=== PATIENT | female | born 1995 | race African-American/Black ===

== ENCOUNTER 2020-08-05 10:23 | Inpatient (IN) ==
[2020-08-05] MEDS ORDERED: DEXAMETHASONE SOD INJ 10 MG/ML VIAL IV ONE (11:07)
[2020-08-05] MEDS ORDERED: ALBUTEROL 0.083% NEBU SOLN 3 ML VIAL NEB STA (11:07)
[2020-08-05] MEDS ORDERED: ACETAMINOPHEN 500 MG TAB PO STA (11:07)
[2020-08-05] MEDS ORDERED: ALBUTEROL HFA 8 GM INHALER INH ONE (11:09)
--- NOTE | 2020-08-05 11:13 | Emergency Department Note ---
Impression & Plan COVID-19, Cough, Shortness of breath, Asthma, Chest pain ED Provider Note NAME: RAFFI LANG AGE: 25 SEX: F : 1995 ARRIVES VIA: Walk-In INFORMANT: Patient ED PROVIDER(S): Norm Hartley DO CHIEF COMPLAINT: Shortness of breath fever HPI: Patient notes that all of her symptoms started around 22 July. She had a cough and a fever. This dissipated for short time and now has reoccurred. She tested positive this past Monday for coronavirus. She admits last night she has had left-sided chest pain which is constant. Is worse on palpation. Her sh ortness of breath is significant worsened over the past 2 days. She is referred in by [facility] as a respiratory rate over there was in the 40s and her pulse ox was 90%. Patient notes any kind of exertion or talking she becomes significantly tachypneic. She recently stopped her steroids as they ran out. Denies any belly pain nausea vomiting or diarrhea. She did lose her sense of taste and smell. ROS: See above HPI for pertinent positives & negatives. A total of 10 systems reviewed and were otherwise negative. PAST MEDICAL HISTORY:See Below PAST SURGICAL HISTORY:See Below FAMILY HISTORY:See Below SOCIAL HISTORY:See Below HOME MEDICATIONS:See Below ALLERGIES:See Below VITALS:See Below PHYSICAL EXAMINATION: GENERAL: Sitting up in bed, alert, morbidly obese, significantly dyspneic with conversation, EYE EXAM: normal conjunctiva. OROPHARYNX: no exudate, no erythema, lips, buccal mucosa, and tongue normal and mucous membranes are moist NECK: supple, no nuchal rigidity, no adenopathy, non-tender LUNGS: Tachypneic and poor air movement. Normal chest wall mechanics HEART: no murmurs, S1 normal and S2 normal ABDOMEN: abdomen soft, non-tender, normo-active bowel sounds, no masses, no rebound or guarding. BACK: Back is symmetrical on inspection and there is no deformity, no midline tenderness, no CVA tenderness. SKIN: no rashes and no bruising UPPER EXTREMITIES: upper extremities are grossly normal. LOWER EXTREMITIES: No pitting edema. Calves are equal bilateral NEURO EXAM: Normal sensorium, cranial nerves II-XII grossly intact, normal speech, no gross weakness of arms, no gross weakness of legs. MEDICAL DECISION MAKING: Patient is a 25-year-old female who presents the ER for worsening shortness of breath. Started about 2 weeks ago with cough and fever. She tested positive for coronavirus. Symptoms have been worsening over the past several days. Shortness of breath significantly worsened yesterday.Review established blood work is obtained. Labs show no significant leukocytosis or anemia. INR was unremarkable. VBG with a pH of 7.42. BMP was unremarkable. Troponin was negative with symptoms have been present for greater than 8 hours. Her chest pain is completely reproducible on exam. She had a recent negative D-dimer on the . EKG was not changed from her previous. She was placed on high flow as upon arrival respiratory rate was in the 40s. She was given multiple albuterol treatments. She was given IV Decadron. Chest x-ray showed no clear infiltrate. Discussed with the hospitalist. Dr. Vázquez requested adding a D-dimer. Patient was admitted to hospital service with an add on D-dimer per their request. Will defer the results and additional testing to them. Triage Nursing notes reviewed. Prior medical records reviewed Vital Signs: reviewed and remarkable for febrile, tachycardic, tachypneic Differential diagnosis: Differential diagnoses includes but is not limited to pneumonia, bronchitis, COPD/Asthma exacerbation, pneumothorax, pulmonary embolism, congestive heart failure, acute coronary syndrome ER treatment provided: See below Diagnostics interpreted by me: ECG: Sinus rhythm rate of 113 Normal axis No PVCs Nonspecific ST wave changes in the lateral leads. Cardiac Monitoring: An order was placed for continuous cardiac monitoring. The monitor shows a rate of 115 with sinus rhythm. Laboratory studies: As stated above and show below. Imaging studies: Portable AP upright 1 view of the chest without any focal infiltrate although difficult to interpret due to body habitus Consultation(s): Case was discussed with Dr. Vaibhav Vázquez who agreed with evaluation and requested the addition of a D-dimer. ED COURSE: Procedures: none Critical Care: I have personally spent 40 minutes of critical care time in the direct management of this patient. This includes bedside care, interpretation of diagnostic studies, and testing, discussion with consultants, patient, and family members, and other required patient management activities. This 40 minutes is in excess of all separately billable procedures. Past Med/Surg History Social History Smoking Status: Never smoker Hx Alcohol Use: No Hx Substance Use: No Preferred Language: Icelandic Communication Ability: Effective Telegraph Office Telephone Clerk Required: No Beliefs That Will Affect Care: None Current Living Situation: Other Current Living Situation Comment: Pt lives with roommate Feels Safe at Home: Yes Assistive Devices: Glasses Allergies Allergies Allergy/AdvReac Type Severity Reaction Status Date / Time No Known Allergies Allergy Unverified 08/05/20 13:17 Home Meds Home Medications Medication Instructions Recorded Confirmed albuterol sulfate [Ventolin HFA] 2 puff INHALATION Q4H PRN 08/05/20 08/05/20 [id number] 30 ml PO Q6H PRN 08/05/20 08/05/20 [Vicks DayQuil] Results & Data (ED) Vital Signs Vital Signs - 24 hr 08/05/20 10:35 08/05/20 10:41 08/05/20 10:51 Temperature 39.6 C H Temperature Source Oral Pulse Rate 120 H 114 H 112 H Pulse Rate [Apical] Pulse Rate from SpO2 Sensor 111 H 112 H Pulse Rhythm Regular Respiratory Rate 29 H 36 H 47 H Respiratory Effort / Characteristics Short of Breath Blood Pressure 125/91 125/91 Blood Pressure Mean 102 100 Pulse Oximetry 93 93 94 Oxygen Delivery Method Room Air Oxygen Flow Rate Fraction of Inspired Oxygen Sepsis Recent Fever Within 48 Hours Yes Sepsis New/Unexplained Change in Mental Status N/A Sepsis Action Taken by Nursing Physician Notified 08/05/20 11:00 08/05/20 11:01 08/05/20 11:30 Temperature Temperature Source Pulse Rate 117 H 115 H 116 H Pulse Rate [Apical] Pulse Rate from SpO2 Sensor 114 H 112 H 114 H Pulse Rhythm Respiratory Rate 39 H 46 H 30 H Respiratory Effort / Characteristics Blood Pressure 119/86 113/79 Blood Pressure Mean 95 89 Pulse Oximetry 93 93 96 Oxygen Delivery Method Oxygen Flow Rate Fraction of Inspired Oxygen Sepsis Recent Fever Within 48 Hours Sepsis New/Unexplained Change in Mental Status Sepsis Action Taken by Nursing 08/05/20 11:31 08/05/20 11:32 08/05/20 11:53 Temperature Temperature Source Pulse Rate 115 H Pulse Rate [Apical] 115 H Pulse Rate from SpO2 Sensor 86 Pulse Rhythm Respiratory Rate 38 H 37 H Respiratory Effort / Characteristics Spontaneous Labored Blood Pressure Blood Pressure Mean Pulse Oximetry 96 97 Oxygen Delivery Method Room Air High Flow Nasal Cannula Oxygen Flow Rate 30 Fraction of Inspired Oxygen 21 Sepsis Recent Fever Within 48 Hours Sepsis New/Unexplained Change in Mental Status Sepsis Action Taken by Nursing 08/05/20 12:00 08/05/20 12:01 08/05/20 12:12 Temperature Temperature Source Pulse Rate 120 H 122 H Pulse Rate [Apical] Pulse Rate from SpO2 Sensor 120 H 54 L Pulse Rhythm Respiratory Rate 10 L 34 H Respiratory Effort / Characteristics Short of Breath Blood Pressure 131/97 Blood Pressure Mean 117 Pulse Oximetry 96 Oxygen Delivery Method Oxygen Flow Rate Fraction of Inspired Oxygen Sepsis Recent Fever Within 48 Hours Sepsis New/Unexplained Change in Mental Status Sepsis Action Taken by Nursing 08/05/20 12:30 08/05/20 13:00 08/05/20 13:01 Temperature Temperature Source Pulse Rate 117 H 123 H 126 H Pulse Rate [Apical] Pulse Rate from SpO2 Sensor 117 H 124 H Pulse Rhythm Respiratory Rate 29 H 20 Respiratory Effort / Characteristics Blood Pressure 132/82 119/83 Blood Pressure Mean 91 88 Pulse Oximetry 95 92 Oxygen Delivery Method Oxygen Flow Rate Fraction of Inspired Oxygen Sepsis Recent Fever Within 48 Hours Sepsis New/Unexplained Change in Mental Status Sepsis Action Taken by Nursing 08/05/20 13:30 08/05/20 13:31 08/05/20 13:39 Temperature Temperature Source Pulse Rate 115 H 115 H Pulse Rate [Apical] 118 H Pulse Rate from SpO2 Sensor 117 H 115 H Pulse Rhythm Respiratory Rate 35 H 36 H Respiratory Effort / Characteristics Spontaneous Labored Blood Pressure 112/87 Blood Pressure Mean 90 Pulse Oximetry 92 93 93 Oxygen Delivery Method High Flow Nasal Cannula Oxygen Flow Rate 30 Fraction of Inspired Oxygen 21 Sepsis Recent Fever Within 48 Hours Sepsis New/Unexplained Change in Mental Status Sepsis Action Taken by Nursing Laboratory Data Result diagrams: 08/05/20 11:29 08/05/20 11:29 Lab Results 08/05/20 08/05/20 08/05/20 Range/Units 11:29 11:29 11:29 WBC 8.06 (4.8-10.8) K/uL RBC 4.97 (4.2-5.4) M/uL Hgb 13.9 (12.0-16.0) g/dL Hct 41.3 (37-47) % MCV 83.1 (80-100) fL MCH 28.0 (25-34) pg MCHC 33.7 (32-36) g/dL RDW Std Deviation 40.0 (36.4-46.3) fL RDW Coeff of Altagracia 13.3 (11.5-14.5) % Plt Count 236 (130-400) K/uL MPV 9.5 (7.4-10.4) fL Immature Gran % (Auto) 2.1 % Neut % (Auto) 69.0 % Lymph % (Auto) 13.6 % Kleberg % (Auto) 14.3 % Eos % (Auto) 0.9 % Baso % (Auto) 0.1 % Neut # (Auto) 5.56 (1.4-6.5) K/uL Lymph # (Auto) 1.10 L (1.2-3.4) K/uL Kleberg # (Auto) 1.15 H (0.11-0.59) K/uL Eos # (Auto) 0.07 (0-0.5) K/uL Baso # (Auto) 0.01 (0-0.2) K/uL Immature Gran # (Auto) 0.17 H (0.00-0.02) K/uL PT 11.9 (9.0-12.0) Seconds INR 1.1 (0.9-1.1) APTT 30.8 (21.0-31.0) Seconds PTT Ratio 1.1 D-Dimer (0-500) ug/L FEU VBG pH (7.36-7.41) VBG pCO2 (38-50) mmHg VBG pO2 mmHg VBG HCO3 mmol/L VBG O2 Saturation % VBG Base Excess mEq/L Sodium 136 (136-145) mmol/L Potassium 3.8 (3.5-5.1) mmol/L Chloride 103 (98-107) mmol/L Carbon Dioxide 28 (21-32) mmol/L Anion Gap 5.0 (3-11) BUN 7 (7-18) mg/dl Creatinine 0.93 (0.6-1.2) mg/dl Est Cr Clr Drug Dosing 133.8 ml/min Est GFR ( Amer) 100.4 Est GFR (Non-Af Amer) 86.6 BUN/Creatinine Ratio 7.6 L (10-20) Glucose 97 (70-99) mg/dl Calcium 8.8 (8.5-10.1) mg/dl Total Bilirubin 2.9 H (0.2-1) mg/dl AST 43 H (15-37) U/L ALT 41 (12-78) U/L Alkaline Phosphatase 77 (45-117) U/L Troponin I < 0.015 (0-0.045) ng/ml Total Protein 7.4 (6.4-8.2) gm/dl Albumin 2.3 L (3.4-5.0) gm/dl Globulin 5.1 H (2.5-4.0) gm/dl Albumin/Globulin Ratio 0.5 L (0.9-2) Lipase 133 (73-393) U/L Specimen Hemolysis 08/05/20 08/05/20 Range/Units 11:29 11:29 WBC (4.8-10.8) K/uL RBC (4.2-5.4) M/uL Hgb (12.0-16.0) g/dL Hct (37-47) % MCV (80-100) fL MCH (25-34) pg MCHC (32-36) g/dL RDW Std Deviation (36.4-46.3) fL RDW Coeff of Altagracia (11.5-14.5) % Plt Count (130-400) K/uL MPV (7.4-10.4) fL Immature Gran % (Auto) % Neut % (Auto) % Lymph % (Auto) % Kleberg % (Auto) % Eos % (Auto) % Baso % (Auto) % Neut # (Auto) (1.4-6.5) K/uL Lymph # (Auto) (1.2-3.4) K/uL Kleberg # (Auto) (0.11-0.59) K/uL Eos # (Auto) (0-0.5) K/uL Baso # (Auto) (0-0.2) K/uL Immature Gran # (Auto) (0.00-0.02) K/uL PT (9.0-12.0) Seconds INR (0.9-1.1) APTT (21.0-31.0) Seconds PTT Ratio D-Dimer 3310 H* (0-500) ug/L FEU VBG pH 7.42 H (7.36-7.41) VBG pCO2 46 (38-50) mmHg VBG pO2 21 mmHg VBG HCO3 29 mmol/L VBG O2 Saturation < 60.0 % VBG Base Excess 4.2 mEq/L Sodium (136-145) mmol/L Potassium (3.5-5.1) mmol/L Chloride (98-107) mmol/L Carbon Dioxide (21-32) mmol/L Anion Gap (3-11) BUN (7-18) mg/dl Creatinine (0.6-1.2) mg/dl Est Cr Clr Drug Dosing ml/min Est GFR ( Amer) Est GFR (Non-Af Amer) BUN/Creatinine Ratio (10-20) Glucose (70-99) mg/dl Calcium (8.5-10.1) mg/dl Total Bilirubin (0.2-1) mg/dl AST (15-37) U/L ALT (12-78) U/L Alkaline Phosphatase (45-117) U/L Troponin I (0-0.045) ng/ml Total Protein (6.4-8.2) gm/dl Albumin (3.4-5.0) gm/dl Globulin (2.5-4.0) gm/dl Albumin/Globulin Ratio (0.9-2) Lipase (73-393) U/L Specimen Hemolysis Administered Medications Discontinued Medications Acetaminophen (Acetaminophen 500 Mg Tab) 1,000 mg PO NOW STA Stop: 08/05/20 11:08 Last Admin: 08/05/20 11:33 Dose: 1,000 mg Documented by: [id number] Albuterol (Albuterol 0.083% Nebu Soln 3 Ml Vial) 10 mg NEB NOW STA Stop: 08/05/20 11:08 Last Admin: 08/05/20 11:29 Dose: Not Given Documented by: [id number] Albuterol (Albuterol Hfa 8 Gm Inhaler) 6 puffs INH NOW ONE Stop: 08/05/20 11:10 Last Admin: 08/05/20 11:33 Dose: 6 puffs Documented by: [id number] Albuterol (Albut/Ipratrop 3mg/0.5mg Neb 3 Ml Vial) 3 ml NEB Q4R JON Stop: 09/04/20 15:14 Last Admin: 08/05/20 15:51 Dose: Not Given Documented by: [id number] Dexamethasone (Dexamethasone Sod Inj 10 Mg/Ml Vial) 6 mg IV NOW ONE Stop: 08/05/20 11:08 Last Admin: 08/05/20 11:33 Dose: 6 mg Documented by: [id number] Discharge Plan Visit Data Chief Complaint: Chest Pain Stated Complaint: CHEST PAIN SOB ED Provider: Norm Hartley Discharge Problem: COVID-19, Cough, Shortness of breath, Asthma, Chest pain Patient Disposition: Admitted As Inpatient Discharge Instructions Interventions: ED Discharge Assessment Last Done: 08/05/20 14:27 Discharge Problem: Asthma Qualifiers: Asthma severity: unspecified severity Asthma persistence: unspecified Asthma complication type: unspecified Qualified Code(s): J45.909 - Unspecified asthma, uncomplicated
--- NOTE | 2020-08-05 11:45 | XRay Report ---
XR chest 1V portable HISTORY: 25 years-old Female Chest Pain acute shortness of breath with weakness and asthma.COVID Pos itive. COMPARISON: Chest radiograph 07/31/2019 TECHNIQUE: Portable AP view of the chest FINDINGS: Mild hypoinflation. Bibasilar opacities are noted with mild blunting of the costophrenic angles. Card iac silhouette is upper limits of normal in size. No pneumothorax or overt pulmonary edema. Bones jimmie ear grossly intact. IMPRESSION: Hypoinflation with bibasilar densities suggestive of probable atelectasis. Pneumonitis co nsidered less likely. ACT 112: Negative or not required by law. The above report was generated using voice recognition software. It may contain grammatical, syntax o r spelling errors. Electronically signed by: Wilber Mandujano M.D. 08/05/2020 11:44 AM
[2020-08-05 11:49] LABS: Base Excess VBG 4.2 mEq/L; HCO3 VBG 29 mmol/L; Oxygen Saturation VBG < 60.0 %; PCO2 VBG 46 mmHg (38-50); PO2 VBG 21 mmHg; pH VBG 7.42 (7.36-7.41)
[2020-08-05 11:57] LABS: INR 1.1 (0.9-1.1); Partial Thromboplastin Ratio 1.1; Partial Thromboplastin Time 30.8 Seconds (21.0-31.0); Prothrombin Time 11.9 Seconds (9.0-12.0)
[2020-08-05 12:05] LABS: Alanine Aminotransferase 41 U/L (12-78); Albumin Level 2.3 gm/dl (3.4-5.0); Aspartate Aminotransferase 43 U/L (15-37); BUN Creatinine Ratio 7.6 (10-20); Blood Urea Nitrogen 7 mg/dl (7-18); Calcium 8.8 mg/dl (8.5-10.1); Carbon Dioxide 28 mmol/L (21-32); Chloride 103 mmol/L (98-107); Creatinine Clr Calc Pharmacy 133.8 ml/min; Est GFR (African American) 100.4; Est GFR (Non-African American) 86.6; Glucose 97 mg/dl (70-99); Lipase 133 U/L (73-393); Potassium 3.8 mmol/L (3.5-5.1); Sodium 136 mmol/L (136-145)
[2020-08-05 12:11] LABS: Albumin Globulin Ratio 0.5 (0.9-2); Alkaline Phosphatase 77 U/L (45-117); Basophils # (auto) 0.01 K/uL (0-0.2); Basophils % (auto) 0.1 %; Bilirubin,Total 2.9 mg/dl (0.2-1); Eosinophils # (auto) 0.07 K/uL (0-0.5); Eosinophils % (auto) 0.9 %; Globulin 5.1 gm/dl (2.5-4.0); Hematocrit (blood only) 41.3 % (37-47); Hemoglobin 13.9 g/dL (12.0-16.0); Immature Granulocytes # (auto) 0.17 K/uL (0.00-0.02); Immature Granulocytes % (auto) 2.1 %; Lymphocytes % (auto) 13.6 %; Mean Corpuscular Hgb Conc 33.7 g/dL (32-36); Mean Corpuscular Volume 83.1 fL (80-100); Mean Platelet Volume 9.5 fL (7.4-10.4); Monocytes # (auto) 1.15 K/uL (0.11-0.59); Monocytes % (auto) 14.3 %; Neutrophils # (auto) 5.56 K/uL (1.4-6.5); Platelet Count 236 K/uL (130-400); RDW Coefficient of Variation 13.3 % (11.5-14.5); Red Blood Count 4.97 M/uL (4.2-5.4); Total Protein 7.4 gm/dl (6.4-8.2); Troponin I < 0.015 ng/ml (0-0.045); White Blood Count 8.06 K/uL (4.8-10.8)
--- NOTE | 2020-08-05 13:29 | Electrocardiogram Report ---
Test Reason : Blood Pressure : / mmHG Vent. Rate : 113 BPM Atrial Rate : 113 BPM P-R Int : 132 ms QRS Dur : 076 ms QT Int : 334 ms P-R-T Axes : 054 019 035 degrees QTc Int : 458 ms Sinus tachycardia Left atrial enlargement Nondiagnostic inferior Q waves Diffuse Minor Nonspecific T wave abnormality Abnormal ECG When compared with ECG of 31-JUL-2020 16:32, No significant change was found Confirmed by Bal Batres ([id number]) on 08/05/2020 1:29:10 PM Referred By: Confirmed By:Bal Batres
[2020-08-05 13:36] LABS: D Dimer 3310 ug/L FEU (0-500)
--- NOTE | 2020-08-05 13:51 | History & Physical Report ---
Date of Service August 05, 2020 Assessment & Plan (1) COVID-19: Patient has had symptoms since July 22 diagnosed July 28 is likely out of the window for remdesivir she will be given continue dexamethasone and zinc. I did discuss with pulmonary medicine and they are in agreement with administering convalescent plasma. They have also recommended Bipap at night to help air trapping. Her elevation of her D-dimer does raise some concern cytokine storm she is in the appropriate timeframe for that. The emergency department patient was put on high flow oxygen Given her inflammatory state and obesity she also is at risk for pulmonary embolism we will therapeutically anticoagulate her and try to coordinate a CTA scan at an appropriate time given her Covid status as the scanner will need to be appropriately sterilized after her scan was completed (2) Asthma: Guarding her asthma she will be supplemented with oxygen she will be given dexamethasone intravenously and DuoNeb's History of Present Illness Primary Care Provider: [facility] 25 yo obese asthmatic patient notes that all of her symptoms started around 22 July. She had a cough and a fever. This dissipated for short time and now has reoccurred. She tested positive 07/28/20 for coronavirus. She admits last night she has had left-sided chest pain which is constant. Is worse on palpation. Her shortness of breath is significant worsened over the past 2 days. She is referred in by [facility] as a respiratory rate over there was in the 40s and her pulse ox was 90%. Patient notes any kind of exertion or talking she becomes significantly tachypneic. She recently stopped her steroids as they ran out. Denies any belly pain nausea vomiting or diarrhea. She did lose her sense of taste and smell. markedly elevated d dimer non specific cxr changes due to poor technique secondary to body habitus Allergies Allergy/AdvReac Type Severity Reaction Status Date / Time No Known Allergies Allergy Unverified 08/05/20 13:17 Home Medications Home Medications Medication Instructions Recorded Confirmed Type albuterol sulfate [Ventolin HFA] 2 puff INHALATION Q4H PRN 08/05/20 08/05/20 History vunemkqlukd-SU-tqpcjnyjdigjh 30 ml PO Q6H PRN 08/05/20 08/05/20 History [Jonathan DayZenia] Past Med/Surg History Social History Smoking Status: Never smoker Feels Safe at Home: Yes Review of Systems Review of Systems: Moderate to severe distress although comfortable with high flow no headache, blurry or double vision no speech or swallowing issues claiming her lack of taste and smell is returned no chest pain, pressure or palpitations Likely dyspneic with any type of exertion no abdominal pain, nausea or vomiting, diarrhea present but lessening no dysuria, hematuria or frequency no focal joint pain or swelling no back pain, CVA tenderness or radicular pain no bruising, bleeding or rashes no focal signs of weakness or numbness or altered sensation no complaints of anxiety or depression. Physical Exam Physical Exam: The patient appeared in moderate distress. Vital signs as documented. Head exam is normocephalic atraumatic no scleral icterus Neck is without JVD, thyromegaly, or carotid bruits. Lungs overall poor air movement, no overt loss or wheeze Cardiac exam, Rhythm is regular.. No murmurs, rubs or gallops. Abdominal exam reveals normal bowel sounds, soft non tender, no masses Extremities are nonedematous and both pedal pulses are present Neurologic exam is alert and oriented, no focal loss of strength or sensation Skin is without bruises or rashes Psychologically is without concerns for anxiety or depression. Results & Data Results & Data ([facility]) Vital Signs (Past 12 Hours) Vital Signs Temp Pulse Pulse Resp BP Pulse Ox 08/05/20 13:39 118 H 36 H 93 08/05/20 12:30 117 H 29 H 132/82 95 08/05/20 12:01 122 H 34 H 08/05/20 12:00 120 H 10 L 131/97 96 08/05/20 11:53 115 H 37 H 97 08/05/20 11:32 96 08/05/20 11:31 115 H 38 H 08/05/20 11:30 116 H 30 H 113/79 96 08/05/20 11:01 115 H 46 H 93 08/05/20 11:00 117 H 39 H 119/86 93 08/05/20 10:51 112 H 47 H 94 08/05/20 10:41 114 H 36 H 125/91 93 08/05/20 10:35 103.3 F H 120 H 29 H 125/91 93 Code Status & VTE Plan VTE Prophylaxis Plan VTE Prophylaxis will be ordered: Yes PG Care Time/CCT Total # of Minutes Spent Total Time Spent with Patient: Total time spent is greater than 50% in coordination of care (as documented) at patient's floor/unit and/or counseling patient: Coding Level of Care Code 73936 Initial Inpt Care Lvl 3 Diagnoses COVID-19 U07.1 Asthma J45.909 Asthma complication type: unspecified Asthma persistence: unspecified Asthma severity: mild (1) Asthma Asthma complication type: unspecified Asthma persistence: unspecified Asthma severity: mild Qualified Code(s): J45.909 - Unspecified asthma, uncomplicated
[2020-08-05] MEDS ORDERED: ACETAMINOPHEN 325 MG TAB PO PRN (15:07)
[2020-08-05] MEDS ORDERED: ENOXAPARIN 1 MG/KG SQ SCH (15:07)
[2020-08-05] MEDS ORDERED: ONDANSETRON INJ 2 MG/ML 2 ML VIAL IV PRN (15:07)
[2020-08-05] MEDS ORDERED: ALBUT/IPRATROP 3MG/0.5MG NEB 3 ML VIAL NEB SCH (15:15)
[2020-08-05] MEDS ORDERED: INFLUENZA ADMINISTRATION CHARGE ONE (15:30)
[2020-08-05] MEDS ORDERED: INFLUENZA VIRUS QUAD VACCINE 0.5 ML SYR IM ONE (15:30)
--- NOTE | 2020-08-05 16:03 | Pharmacy Report ---
Enoxaparin Dosing Consult - Date of Service August 05, 2020 - Pharmacy Dosing Scope Pharmacy is consulted to review the use of enoxaparin in a special risk patient population possibly prone to accumulate drug: obesity and SARS-COV-2 positive with elevated D-dimer & to initiate/continue/recommend change in the setting of ordered THERAPEUTIC enoxaparin sub-q dosing therapy, order appropriate labs and adjust drug/dose/frequency. - Subjective The patient is a 25 year old F admitted on 08/05/20 13:46 for COVID +, ACUTE RESP FAILURE HYPOXIA. Patient is to receive THERAPEUTIC enoxaparin sub-q for COVID-19 positive status and elevated d-dimer. Pertinent PMH: COVID-19 positive, asthma - Objective Laboratory Results:: Last 24 Hours 08/05/20 08/05/20 08/05/20 11:29 11:29 11:29 Hgb 13.9 Hct 41.3 Plt Count 236 APTT 30.8 PTT Ratio 1.1 BUN 7 Creatinine 0.93 Last 72 Hours 08/05/20 08/05/20 08/05/20 11:29 11:29 11:29 Plt Count 236 INR 1.1 D-Dimer Total Bilirubin 2.9 H AST 43 H ALT 41 08/05/20 11:29 Plt Count INR D-Dimer 3310 H* Total Bilirubin AST ALT - Assessment & Plan Regarding THERAPEUTIC Enoxaparin: Initiate enoxaparin 150 mg sub-q every 12 hours based on review of the following special population risk factors for drug accumulation: obese Covid positive patient with elevated d-dimer. Discussed with hospitalist and Dr. Bradley. Labs: * Will order Peak Anti-factor Xa level to be drawn 4 hours after 5th dose to better assess drug elimination & review potential for drug accumulation. Goal Peak Anti-factor Xa level = 0.5-1.0 IU/mL. * Ongoing Labs (P&T Approved): CBC q 3 days x 2 weeks, serum creat q 3 days We will continue to monitor this patient and make adjustments as needed. Thank you.
[2020-08-05] MEDS ORDERED: OPTIRAY 320 125ml IV ONE (16:39)
--- NOTE | 2020-08-05 16:55 | CT Scan Report ---
CT angio chest PE protocol CT DOSE: 411.55 mGycm HISTORY: 25 years-old Female with PE. Acute shortness of breath TECHNIQUE: Multiple CTA images of the chest were obtained after the intravenous administration of 119 ml Optiray 320. Coronal and sagittal MIPS were obtained from the axial data set and were submitted for review. All measurements were obtained according to NASCET criteria. A dose lowering technique w as utilized adhering to the principles of ALARA. COMPARISON: Chest radiograph of same day FINDINGS: CTA: Heart is upper limits of normal in size. No pericardial effusion. No thoracic aortic aneurysm or diss ection. Suboptimal evaluation of the pulmonary artery secondary to motion and suboptimal contrast silvio us timing. Numerous filling defects are noted within the lobar and segmental branches of the lower lo bes compatible with pulmonary emboli. CT CHEST: Unremarkable thyroid. No adenopathy. Trace pleural effusions. No pneumothorax. Patchy multisegmental alveolar opacities of the bilateral lungs with dense consolidation groundglass opacity of the lung ba ses. No acute process of the imaged upper abdomen. Bones appear intact. IMPRESSION: 1. Limited exam as above. Pulmonary emboli of the bilateral lower lobes are noted within the lobar an d segmental branches. 2. Multifocal bibasilar predominate groundglass and consolidative opacities are suggestive of multifo magdalena pneumonia likely with superimposed atelectasis/developing pulmonary infarcts. Follow-up recommend ed. 3. Trace pleural effusions. ACT 112: Negative or not required by law. The above report was generated using voice recognition software. It may contain grammatical, syntax o r spelling errors. Electronically signed by: Wilber Mandujano M.D. 08/05/2020 4:53 PM
[2020-08-05 17:16] LABS: Pregnancy Test, Urine Negative (Negative)
[2020-08-05] MEDS: ENOXAPARIN 150 MG/ML SYR SQ SCH (17:25)
[2020-08-05] MEDS: ALBUTEROL HFA 8 GM INHALER INH SCH ×2 (20:15→23:21)
[2020-08-05] MEDS: IPRATROPIUM BROMIDE HFA INHALER INH SCH (20:15)
[2020-08-06] MEDS: IPRATROPIUM BROMIDE HFA INHALER INH SCH ×6 (00:08→19:32)
[2020-08-06] MEDS: ALBUTEROL HFA 8 GM INHALER INH SCH ×5 (03:35→19:30)
[2020-08-06] MEDS: ENOXAPARIN 150 MG/ML SYR SQ SCH ×2 (06:39→20:01)
[2020-08-06 07:31] LABS: Hematocrit (blood only) 38.5 % (37-47); Hemoglobin 13.1 g/dL (12.0-16.0); Mean Corpuscular Hemoglobin 28.2 pg (25-34); Mean Corpuscular Volume 82.8 fL (80-100); Mean Platelet Volume 9.5 fL (7.4-10.4); Platelet Count 245 K/uL (130-400); RDW Coefficient of Variation 13.3 % (11.5-14.5); RDW Standard Deviation 40.3 fL (36.4-46.3); Red Blood Count 4.65 M/uL (4.2-5.4); White Blood Count 10.72 K/uL (4.8-10.8)
[2020-08-06 08:03] LABS: Creatinine Clr Calc Pharmacy 149.1 ml/min; Est GFR (African American) 116.9; Est GFR (Non-African American) 100.9
[2020-08-06] MEDS: ZINC SULFATE 220 MG CAPSULE PO SCH (08:23)
[2020-08-06] MEDS ORDERED: DEXAMETHASONE SOD INJ 10 MG/ML VIAL IV SCH (09:00)
[2020-08-06] MEDS ORDERED: DEXAMETHASONE SOD PHOSPHATE 6 MG in SYRINGE 0 ML IV SCH (09:00)
[2020-08-06 10:55] LABS: Basophils # (auto) 0.01 K/uL (0-0.2); Basophils % (auto) 0.1 %; Eosinophils # (auto) 0.02 K/uL (0-0.5); Eosinophils % (auto) 0.2 %; Immature Granulocytes # (auto) 0.19 K/uL (0.00-0.02); Immature Granulocytes % (auto) 1.8 %; Lymphocytes # (auto) 1.07 K/uL (1.2-3.4); Monocytes # (auto) 1.43 K/uL (0.11-0.59); Monocytes % (auto) 13.3 %; Neutrophils % (auto) 74.6 %
[2020-08-06 10:58] LABS: Albumin Level 2.3 gm/dl (3.4-5.0); BUN Creatinine Ratio 7.6 (10-20); Calcium 8.6 mg/dl (8.5-10.1); Creatinine Clr Calc Pharmacy 147.3 ml/min; Est GFR (African American) 115.2; Est GFR (Non-African American) 99.4
[2020-08-06 11:03] LABS: Albumin Globulin Ratio 0.5 (0.9-2); Bilirubin,Total 1.3 mg/dl (0.2-1); C Reactive Protein 16.8 mg/dl (0-0.29); Ferritin 288.4 ng/ml (8-388); Globulin 5.1 gm/dl (2.5-4.0); Total Protein 7.4 gm/dl (6.4-8.2)
[2020-08-06 11:18] LABS: D Dimer 4130 ug/L FEU (0-500)
--- NOTE | 2020-08-06 17:48 | Hospitalist Progress Note ---
Date of Service August 06, 2020 Assessment & Plan (1) Pulmonary emboli: Presented after having Covid-19 for approximately 2 weeks with worsening shortness of breath, fever and was found to have bilateral pulmonary emboli with developing pulmonary infarcts She remains hemodynamically stable Echocardiogram cannot be performed in this facility on a Covid patient unless deemed of very urgent nature. Recommend echocardiogram as an outpatient in 1 to 2 weeks Due to her morbid obesity, anticoagulation clinic was consulted for management Decision was made to proceed with full dose therapeutic Lovenox 150 mg SQ every 12 hours Checking Anti-Xa level 4 hours after the fifth dose to ensure therapeutic dosing Plan to continue Lovenox for approximately 2 weeks until she is able to start on Coumadin and attend the anticoagulation clinic regularly (when she is no longer considered contagious with her Covid and can come out of quarantine) Patient is in agreement with this plan Recommend anticoagulation for 6 months Of note, she reports her mother has a history of multiple blood clots Recommend hypercoagulable work-up given this family history despite the fact that she has Covid-19 and morbid obesity which certainly could have provoked her PEs. -Ordered all hypercoagulable work-up except could not order Antithrombin III and lupus PTT screen as she is on anticoagulant with enoxaparin -Follow [id number] elevated today at 4000 (2) COVID-19: Patient has had symptoms since July 22 and was diagnosed July 28 -She is out of the window for receiving remdesivir -She did receive 1 unit of convalescent plasma -Continue dexamethasone but increased to 6 mg IV twice daily given large body habitus and wheezing with asthma on examination Pulmonary has recommended Bipap at night to help air trapping-this was ordered but unclear why not used last night. -Markers of inflammation are significantly elevated with ESR greater than 90, CRP 16, D-dimer in the 4000s -Continue to follow CBC, CMP, D-dimer, LDH, ferritin, CRP, ESR -Also continues on zinc sulfate (3) Acute respiratory failure with hypoxia: Secondary to pulmonary emboli with pulmonary infarcts and wheezing with asthma Continue supplemental O2 to keep pulse ox greater than 92% Continue albuterol and ipratropium HFA's but change albuterol to 2 puffs every 6 hours (4) Asthma: Continue bronchodilators and IV steroids as above With some wheezing here today (5) Morbid obesity: BMI significantly elevated at 58.9 Needs weight loss counseling and encouragement (6) Fever: Fevers could be from Covid-19, but more likely from acute PEs with pulmonary infarct Procalcitonin is negative at 0.12 Tylenol as needed for fever Blood cultures drawn today and are pending Follow procalcitonin in the morning as it is a high risk for secondary bacterial pneumonia given Covid-19 as well as pulmonary infarcts and asthma No antibiotics for now (7) DVT prophylaxis: Therapeutic dosing of Lovenox SQ Disposition-continued stay on telemetry Expected least 2 nights further stay Admission and Anticipated Discharge Date Admission Date: August 05, 2020 Subjective Patient reports still not feeling that well. Still spiking fevers. She has a dry cough. Denies chest pain but still feels a little short of breath. Denies nausea or vomiting and is eating well. No further diarrhea but did have that earlier in the course of her Covid We discussed anticoagulation strategy with Lovenox bridge to Coumadin I discussed her care with the stallion keeper regarding her fevers and the possibility of pulmonary infarct and suspected pneumonia-he recommended checking procalcitonin which was done and was negative. I also discussed her care with anticoagulation specialist regarding Lovenox x2 weeks until she is off quarantine and can come to the anticoagulation clinic for Coumadin management Review of Systems Review of Systems: All systems reviewed & are unremarkable except as noted in HPI & below Denies headache or runny nose, no sore throat. She does still have some loss of taste and smell. No trouble urinating Physical Exam Constitutional: WD/WN, vitals as above + morbidly obese Eyes: PERRL, conjunctivae normal, anicteric sclerae ENMT: external ear and nose normal, oropharynx normal Neck: trachea midline, no thyromegaly Respiratory: normal respiratory effort and + cough Auscultation: + diminished lung sounds (At the bases) and + wheezes (A few scattered expiratory wheezes); no crackles Cardiovascular: RRR, no murmur, no edema Extremities: no calf tenderness and no pedal edema Chest (Breasts): Chest: normal inspection of chest Gastrointestinal (Abdomen): normal bowel sounds, soft, nontender, no hepatosplenomegaly Musculoskeletal: Extremities: extremities normal to inspection; no cyanosis and no clubbing Skin: no rashes, warm and dry Neurologic: moves all extremities and awake; no focal motor deficits Psychiatric: A+Ox3, euthymic affect Lymphatic: no lymphedema Results & Data Results & Data ([facility]) Vital Signs (Past 12 Hours) Vital Signs Temp Pulse Pulse Pulse Resp BP Pulse Ox 08/06/20 15:34 94 H 22 92 08/06/20 15:10 36.9 C 96 H 20 135/89 91 08/06/20 15:01 91 H 08/06/20 13:07 37.6 C H 135 H 154/83 H 08/06/20 11:34 37.6 C H 99 H 18 139/89 89 L 08/06/20 11:12 101 H 26 H 86 L 08/06/20 08:48 37.3 C 104 H 17 140/86 93 08/06/20 07:21 98 H 26 H 92 Laboratory Results 08/06/20 08/06/20 08/06/20 Range/Units 10:27 06:40 06:40 WBC (4.8-10.8) K/uL RBC (4.2-5.4) M/uL Hgb (12.0-16.0) g/dL Hct (37-47) % MCV (80-100) fL MCH (25-34) pg MCHC (32-36) g/dL RDW Std Deviation (36.4-46.3) fL RDW Coeff of Altagracia (11.5-14.5) % Plt Count (130-400) K/uL MPV (7.4-10.4) fL Immature Gran % (Auto) % Neut % (Auto) % Lymph % (Auto) % Rankin % (Auto) % Eos % (Auto) % Baso % (Auto) % Neut # (Auto) (1.4-6.5) K/uL Lymph # (Auto) (1.2-3.4) K/uL Rankin # (Auto) (0.11-0.59) K/uL Eos # (Auto) (0-0.5) K/uL Baso # (Auto) (0-0.2) K/uL Immature Gran # (Auto) (0.00-0.02) K/uL ESR > 90 H (0-21) mm/hr D-Dimer 4130 H* (0-500) ug/L FEU Sodium (136-145) mmol/L Potassium (3.5-5.1) mmol/L Chloride (98-107) mmol/L Carbon Dioxide (21-32) mmol/L Anion Gap (3-11) BUN (7-18) mg/dl Creatinine (0.6-1.2) mg/dl Est Cr Clr Drug Dosing ml/min Est GFR ( Amer) Est GFR (Non-Af Amer) BUN/Creatinine Ratio (10-20) Glucose (70-99) mg/dl Calcium (8.5-10.1) mg/dl Ferritin (8-388) ng/ml Total Bilirubin (0.2-1) mg/dl AST (15-37) U/L ALT (12-78) U/L Alkaline Phosphatase (45-117) U/L Lactate Dehydrogenase 483 H (84-246) U/L C-Reactive Protein (0-0.29) mg/dl Total Protein (6.4-8.2) gm/dl Albumin (3.4-5.0) gm/dl Globulin (2.5-4.0) gm/dl Albumin/Globulin Ratio (0.9-2) Procalcitonin (0-0.5) ng/ml 08/06/20 08/06/20 08/06/20 Range/Units 06:40 06:40 06:40 WBC (4.8-10.8) K/uL RBC (4.2-5.4) M/uL Hgb (12.0-16.0) g/dL Hct (37-47) % MCV (80-100) fL MCH (25-34) pg MCHC (32-36) g/dL RDW Std Deviation (36.4-46.3) fL RDW Coeff of Altagracia (11.5-14.5) % Plt Count (130-400) K/uL MPV (7.4-10.4) fL Immature Gran % (Auto) % Neut % (Auto) % Lymph % (Auto) % Rankin % (Auto) % Eos % (Auto) % Baso % (Auto) % Neut # (Auto) (1.4-6.5) K/uL Lymph # (Auto) (1.2-3.4) K/uL Rankin # (Auto) (0.11-0.59) K/uL Eos # (Auto) (0-0.5) K/uL Baso # (Auto) (0-0.2) K/uL Immature Gran # (Auto) (0.00-0.02) K/uL ESR (0-21) mm/hr D-Dimer (0-500) ug/L FEU Sodium 138 (136-145) mmol/L Potassium 4.0 (3.5-5.1) mmol/L Chloride 105 (98-107) mmol/L Carbon Dioxide 28 (21-32) mmol/L Anion Gap 5.0 (3-11) BUN 6 L (7-18) mg/dl Creatinine 0.83 0.82 (0.6-1.2) mg/dl Est Cr Clr Drug Dosing 147.3 149.1 ml/min Est GFR ( Amer) 115.2 116.9 Est GFR (Non-Af Amer) 99.4 100.9 BUN/Creatinine Ratio 7.6 L (10-20) Glucose 105 H (70-99) mg/dl Calcium 8.6 (8.5-10.1) mg/dl Ferritin 288.4 (8-388) ng/ml Total Bilirubin 1.3 H D (0.2-1) mg/dl AST 36 (15-37) U/L ALT 36 (12-78) U/L Alkaline Phosphatase 86 (45-117) U/L Lactate Dehydrogenase (84-246) U/L C-Reactive Protein 16.80 H (0-0.29) mg/dl Total Protein 7.4 (6.4-8.2) gm/dl Albumin 2.3 L (3.4-5.0) gm/dl Globulin 5.1 H (2.5-4.0) gm/dl Albumin/Globulin Ratio 0.5 L (0.9-2) Procalcitonin 0.12 (0-0.5) ng/ml 08/06/20 Range/Units 06:40 WBC 10.72 (4.8-10.8) K/uL RBC 4.65 (4.2-5.4) M/uL Hgb 13.1 (12.0-16.0) g/dL Hct 38.5 (37-47) % MCV 82.8 (80-100) fL MCH 28.2 (25-34) pg MCHC 34.0 (32-36) g/dL RDW Std Deviation 40.3 (36.4-46.3) fL RDW Coeff of Altagracia 13.3 (11.5-14.5) % Plt Count 245 (130-400) K/uL MPV 9.5 (7.4-10.4) fL Immature Gran % (Auto) 1.8 % Neut % (Auto) 74.6 % Lymph % (Auto) 10.0 % Rankin % (Auto) 13.3 % Eos % (Auto) 0.2 % Baso % (Auto) 0.1 % Neut # (Auto) 8.00 H (1.4-6.5) K/uL Lymph # (Auto) 1.07 L (1.2-3.4) K/uL Rankin # (Auto) 1.43 H (0.11-0.59) K/uL Eos # (Auto) 0.02 (0-0.5) K/uL Baso # (Auto) 0.01 (0-0.2) K/uL Immature Gran # (Auto) 0.19 H (0.00-0.02) K/uL ESR (0-21) mm/hr D-Dimer (0-500) ug/L FEU Sodium (136-145) mmol/L Potassium (3.5-5.1) mmol/L Chloride (98-107) mmol/L Carbon Dioxide (21-32) mmol/L Anion Gap (3-11) BUN (7-18) mg/dl Creatinine (0.6-1.2) mg/dl Est Cr Clr Drug Dosing ml/min Est GFR ( Amer) Est GFR (Non-Af Amer) BUN/Creatinine Ratio (10-20) Glucose (70-99) mg/dl Calcium (8.5-10.1) mg/dl Ferritin (8-388) ng/ml Total Bilirubin (0.2-1) mg/dl AST (15-37) U/L ALT (12-78) U/L Alkaline Phosphatase (45-117) U/L Lactate Dehydrogenase (84-246) U/L C-Reactive Protein (0-0.29) mg/dl Total Protein (6.4-8.2) gm/dl Albumin (3.4-5.0) gm/dl Globulin (2.5-4.0) gm/dl Albumin/Globulin Ratio (0.9-2) Procalcitonin (0-0.5) ng/ml PG Care Time/CCT Total # of Minutes Spent Total Time Spent with Patient: Total time spent is greater than 50% in coordination of care (as documented) at patient's floor/unit and/or counseling patient: Coding Level of Care Code 94698 Subseq Hosp Care Lvl 3 Diagnoses Pulmonary emboli I26.99 COVID-19 U07.1 Acute respiratory failure with hypoxia J96.01 Asthma J45.909 Asthma complication type: unspecified Asthma persistence: unspecified Asthma severity: unspecified severity Morbid obesity E66.01 Fever R50.9 DVT prophylaxis Z29.9 (1) Asthma Asthma complication type: unspecified Asthma persistence: unspecified Asthma severity: unspecified severity Qualified Code(s): J45.909 - Unspecified asthma, uncomplicated
[2020-08-07] MEDS: DEXAMETHASONE SOD PHOSPHATE 6 MG in SYRINGE 0 ML IV SCH ×3 (00:29→19:46)
[2020-08-07] MEDS: ALBUTEROL HFA 8 GM INHALER INH SCH ×6 (01:15→23:39)
[2020-08-07] MEDS: IPRATROPIUM BROMIDE HFA INHALER INH SCH ×6 (01:15→23:55)
[2020-08-07] MEDS: ENOXAPARIN 150 MG/ML SYR SQ SCH ×2 (06:04→19:44)
[2020-08-07 08:23] LABS: Hemoglobin 13.5 g/dL (12.0-16.0); Immature Granulocytes # (auto) 0.28 K/uL (0.00-0.02); Immature Granulocytes % (auto) 2.2 %; Lymphocytes # (auto) 1.14 K/uL (1.2-3.4); Lymphocytes % (auto) 8.9 %; Mean Corpuscular Hgb Conc 33.8 g/dL (32-36); Monocytes # (auto) 0.92 K/uL (0.11-0.59); Monocytes % (auto) 7.2 %; Neutrophils # (auto) 10.47 K/uL (1.4-6.5); Neutrophils % (auto) 81.7 %; Platelet Count 318 K/uL (130-400); RDW Coefficient of Variation 13.4 % (11.5-14.5); RDW Standard Deviation 40.4 fL (36.4-46.3); Red Blood Count 4.82 M/uL (4.2-5.4); White Blood Count 12.81 K/uL (4.8-10.8)
[2020-08-07] MEDS: ZINC SULFATE 220 MG CAPSULE PO SCH (08:51)
[2020-08-07 08:52] LABS: Albumin Level 2.3 gm/dl (3.4-5.0); BUN Creatinine Ratio 12.7 (10-20); Calcium 9.3 mg/dl (8.5-10.1); Creatinine Clr Calc Pharmacy 147.2 ml/min; Est GFR (African American) 115.2; Est GFR (Non-African American) 99.4; Potassium 3.9 mmol/L (3.5-5.1)
[2020-08-07 08:58] LABS: Albumin Globulin Ratio 0.4 (0.9-2); Bilirubin,Total 0.7 mg/dl (0.2-1); C Reactive Protein 9.32 mg/dl (0-0.29); Ferritin 369.8 ng/ml (8-388); Globulin 5.6 gm/dl (2.5-4.0); Total Protein 7.9 gm/dl (6.4-8.2)
[2020-08-07 09:22] LABS: D Dimer 2850 ug/L FEU (0-500)
--- NOTE | 2020-08-07 17:52 | Hospitalist Progress Note ---
Date of Service August 07, 2020 Assessment & Plan (1) Pulmonary emboli: Presented after having Covid-19 for approximately 2 weeks with worsening shortness of breath, fever and was found to have bilateral pulmonary emboli with developing pulmonary infarcts She remains hemodynamically stable Echocardiogram cannot be performed in this facility on a Covid patient unless deemed of very urgent nature. Recommend echocardiogram as an outpatient in 1 to 2 weeks Due to her morbid obesity, anticoagulation clinic was consulted for management Decision was made to proceed with full dose therapeutic Lovenox 150 mg SQ every 12 hours Checking Anti-Xa level 4 hours after the fifth dose to ensure therapeutic dosing-this will be tonight Plan to continue Lovenox for approximately 2 weeks until she is able to start on Coumadin and attend the anticoagulation clinic regularly (when she is no longer considered contagious with her Covid and can come out of quarantine) Patient is in agreement with this plan Recommend anticoagulation for 6 months Of note, she reports her mother has a history of multiple blood clots Recommend hypercoagulable work-up given this family history despite the fact that she has Covid-19 and morbid obesity which certainly could have provoked her PEs. -Ordered all hypercoagulable work-up except could not order Antithrombin III and lupus PTT screen as she is on anticoagulant with enoxaparin -Follow [id number] today down to 2850 (2) COVID-19: Patient has had symptoms since July 22 and was diagnosed July 28 -She is out of the window for receiving remdesivir -She did receive 1 unit of convalescent plasma -Continue dexamethasone but increased to 6 mg IV twice daily given large body habitus and wheezing with asthma on examination Pulmonary has recommended Bipap at night to help air trapping-patient declined this -Markers of inflammation are significantly elevated with ESR greater than 90, CRP 16 and is now down to 9, D-dimer in the 4000s at the peak and now trending downward -Continue to follow CBC, CMP, D-dimer, LDH, ferritin, CRP, ESR -Also continues on zinc sulfate (3) Acute respiratory failure with hypoxia: Secondary to pulmonary emboli with pulmonary infarcts and wheezing with asthma-improving today Continue supplemental O2 to keep pulse ox greater than 92% Continue albuterol and ipratropium HFA's 2 puffs every 6 hours (4) Asthma: Continue bronchodilators and IV steroids as above With some wheezing here which is now resolved (5) Morbid obesity: BMI significantly elevated at 58.9 Needs weight loss counseling and encouragement (6) Fever: Fevers could be from Covid-19, but more likely from acute PEs with pulmonary infarct-still with low-grade fevers Procalcitonin is negative at 0.12 and again today at 0.13 Continue Tylenol as needed for fever Blood cultures no growth to date No antibiotics for now (7) DVT prophylaxis: Therapeutic dosing of Lovenox SQ Disposition-continued stay on telemetry Possibly discharged home the next 1 to 2 days-May need home O2 Admission and Anticipated Discharge Date Admission Date: August 05, 2020 Subjective Patient reports she is feeling better today. Still with some cough but is weaning down off the oxygen. Denies chest pain. No nausea or vomitings tolerating p.o. No diarrhea or abdominal pain. Telemetry with normal sinus rhythm, rates in the 90s to 150s with moving around the room Review of Systems Review of Systems: All systems reviewed & are unremarkable except as noted in HPI & below Physical Exam Constitutional: WD/WN, vitals as above + morbidly obese Eyes: + anicteric sclerae Neck: trachea midline, no thyromegaly Respiratory: normal respiratory effort and + cough Auscultation: + diminished lung sounds (At the bases); no crackles Cardiovascular: RRR, no murmur, no edema Extremities: no calf tenderness and no pedal edema Chest (Breasts): Chest: normal inspection of chest Gastrointestinal (Abdomen): normal bowel sounds, soft, nontender, no hepatosplenomegaly Musculoskeletal: Extremities: extremities normal to inspection; no cyanosis and no clubbing Skin: no rashes, warm and dry Neurologic: moves all extremities and awake; no focal motor deficits Psychiatric: A+Ox3, euthymic affect Lymphatic: no lymphedema Results & Data Results & Data ([facility]) Vital Signs (Past 12 Hours) Vital Signs Temp Pulse Pulse Resp BP Pulse Ox 08/07/20 15:55 37.6 C H 83 18 137/89 93 08/07/20 15:27 88 08/07/20 12:51 90 14 89 L 08/07/20 12:09 37.5 C 87 20 131/90 93 08/07/20 11:30 81 08/07/20 08:48 36.8 C 101 H 20 137/84 93 08/07/20 07:57 92 H 14 91 Laboratory Results 08/07/20 08/07/20 08/07/20 Range/Units 07:48 07:48 07:48 WBC (4.8-10.8) K/uL RBC (4.2-5.4) M/uL Hgb (12.0-16.0) g/dL Hct (37-47) % MCV (80-100) fL MCH (25-34) pg MCHC (32-36) g/dL RDW Std Deviation (36.4-46.3) fL RDW Coeff of Altagracia (11.5-14.5) % Plt Count (130-400) K/uL MPV (7.4-10.4) fL Immature Gran % (Auto) % Neut % (Auto) % Lymph % (Auto) % Irion % (Auto) % Eos % (Auto) % Baso % (Auto) % Neut # (Auto) (1.4-6.5) K/uL Lymph # (Auto) (1.2-3.4) K/uL Irion # (Auto) (0.11-0.59) K/uL Eos # (Auto) (0-0.5) K/uL Baso # (Auto) (0-0.2) K/uL Immature Gran # (Auto) (0.00-0.02) K/uL ESR (0-21) mm/hr D-Dimer 2850 H* (0-500) ug/L FEU Protein C Activity Protein S Activity Factor V Leiden Mutat Factor V Leiden Interp Sodium (136-145) mmol/L Potassium (3.5-5.1) mmol/L Chloride (98-107) mmol/L Carbon Dioxide (21-32) mmol/L Anion Gap (3-11) BUN (7-18) mg/dl Creatinine (0.6-1.2) mg/dl Est Cr Clr Drug Dosing ml/min Est GFR ( Amer) Est GFR (Non-Af Amer) BUN/Creatinine Ratio (10-20) Glucose (70-99) mg/dl Calcium (8.5-10.1) mg/dl Ferritin (8-388) ng/ml Total Bilirubin (0.2-1) mg/dl AST (15-37) U/L ALT (12-78) U/L Alkaline Phosphatase (45-117) U/L Lactate Dehydrogenase 734 H (84-246) U/L C-Reactive Protein (0-0.29) mg/dl Total Protein (6.4-8.2) gm/dl Albumin (3.4-5.0) gm/dl Globulin (2.5-4.0) gm/dl Albumin/Globulin Ratio (0.9-2) Homocysteine Procalcitonin 0.13 (0-0.5) ng/ml Beta-2-GPI IgG Ab Beta-2-GPI IgM Ab Anti-Cardiolipin IgG Ab Anti-Cardiolipin IgM Ab Prothrombin Gene Mutate Prothromb Gene Comment 08/07/20 08/07/20 08/07/20 Range/Units 07:48 07:48 07:48 WBC 12.81 H (4.8-10.8) K/uL RBC 4.82 (4.2-5.4) M/uL Hgb 13.5 (12.0-16.0) g/dL Hct 40.0 (37-47) % MCV 83.0 (80-100) fL MCH 28.0 (25-34) pg MCHC 33.8 (32-36) g/dL RDW Std Deviation 40.4 (36.4-46.3) fL RDW Coeff of Altagracia 13.4 (11.5-14.5) % Plt Count 318 (130-400) K/uL MPV 10.0 (7.4-10.4) fL Immature Gran % (Auto) 2.2 % Neut % (Auto) 81.7 % Lymph % (Auto) 8.9 % Irion % (Auto) 7.2 % Eos % (Auto) 0.0 % Baso % (Auto) 0.0 % Neut # (Auto) 10.47 H (1.4-6.5) K/uL Lymph # (Auto) 1.14 L (1.2-3.4) K/uL Irion # (Auto) 0.92 H (0.11-0.59) K/uL Eos # (Auto) 0.00 (0-0.5) K/uL Baso # (Auto) 0.00 (0-0.2) K/uL Immature Gran # (Auto) 0.28 H (0.00-0.02) K/uL ESR > 90 H (0-21) mm/hr D-Dimer (0-500) ug/L FEU Protein C Activity Protein S Activity Factor V Leiden Mutat Factor V Leiden Interp Sodium 137 (136-145) mmol/L Potassium 3.9 (3.5-5.1) mmol/L Chloride 105 (98-107) mmol/L Carbon Dioxide 26 (21-32) mmol/L Anion Gap 7.0 (3-11) BUN 11 D (7-18) mg/dl Creatinine 0.83 (0.6-1.2) mg/dl Est Cr Clr Drug Dosing 147.2 ml/min Est GFR ( Amer) 115.2 Est GFR (Non-Af Amer) 99.4 BUN/Creatinine Ratio 12.7 (10-20) Glucose 148 H (70-99) mg/dl Calcium 9.3 (8.5-10.1) mg/dl Ferritin 369.8 (8-388) ng/ml Total Bilirubin 0.7 D (0.2-1) mg/dl AST 68 H (15-37) U/L ALT 70 (12-78) U/L Alkaline Phosphatase 88 (45-117) U/L Lactate Dehydrogenase (84-246) U/L C-Reactive Protein 9.32 H (0-0.29) mg/dl Total Protein 7.9 (6.4-8.2) gm/dl Albumin 2.3 L (3.4-5.0) gm/dl Globulin 5.6 H (2.5-4.0) gm/dl Albumin/Globulin Ratio 0.4 L (0.9-2) Homocysteine Procalcitonin (0-0.5) ng/ml Beta-2-GPI IgG Ab Beta-2-GPI IgM Ab Anti-Cardiolipin IgG Ab Anti-Cardiolipin IgM Ab Prothrombin Gene Mutate Prothromb Gene Comment 08/07/20 08/07/20 Range/Units 07:47 07:47 WBC (4.8-10.8) K/uL RBC (4.2-5.4) M/uL Hgb (12.0-16.0) g/dL Hct (37-47) % MCV (80-100) fL MCH (25-34) pg MCHC (32-36) g/dL RDW Std Deviation (36.4-46.3) fL RDW Coeff of Altagracia (11.5-14.5) % Plt Count (130-400) K/uL MPV (7.4-10.4) fL Immature Gran % (Auto) % Neut % (Auto) % Lymph % (Auto) % Irion % (Auto) % Eos % (Auto) % Baso % (Auto) % Neut # (Auto) (1.4-6.5) K/uL Lymph # (Auto) (1.2-3.4) K/uL Irion # (Auto) (0.11-0.59) K/uL Eos # (Auto) (0-0.5) K/uL Baso # (Auto) (0-0.2) K/uL Immature Gran # (Auto) (0.00-0.02) K/uL ESR (0-21) mm/hr D-Dimer (0-500) ug/L FEU Protein C Activity Pending Protein S Activity Pending Factor V Leiden Mutat Pending Factor V Leiden Interp Pending Sodium (136-145) mmol/L Potassium (3.5-5.1) mmol/L Chloride (98-107) mmol/L Carbon Dioxide (21-32) mmol/L Anion Gap (3-11) BUN (7-18) mg/dl Creatinine (0.6-1.2) mg/dl Est Cr Clr Drug Dosing ml/min Est GFR ( Amer) Est GFR (Non-Af Amer) BUN/Creatinine Ratio (10-20) Glucose (70-99) mg/dl Calcium (8.5-10.1) mg/dl Ferritin (8-388) ng/ml Total Bilirubin (0.2-1) mg/dl AST (15-37) U/L ALT (12-78) U/L Alkaline Phosphatase (45-117) U/L Lactate Dehydrogenase (84-246) U/L C-Reactive Protein (0-0.29) mg/dl Total Protein (6.4-8.2) gm/dl Albumin (3.4-5.0) gm/dl Globulin (2.5-4.0) gm/dl Albumin/Globulin Ratio (0.9-2) Homocysteine Pending Procalcitonin (0-0.5) ng/ml Beta-2-GPI IgG Ab Pending Beta-2-GPI IgM Ab Pending Anti-Cardiolipin IgG Ab Pending Anti-Cardiolipin IgM Ab Pending Prothrombin Gene Mutate Pending Prothromb Gene Comment Pending PG Care Time/CCT Total # of Minutes Spent Total Time Spent with Patient: Total time spent is greater than 50% in co ordination of care (as documented) at patient's floor/unit and/or counseling patient: Coding Level of Care Code 60220 Subseq Hosp Care Lvl 3 Diagnoses Pulmonary emboli I26.99 COVID-19 U07.1 Acute respiratory failure with hypoxia J96.01 Asthma J45.909 Asthma complication type: unspecified Asthma persistence: unspecified Asthma severity: unspecified severity Morbid obesity E66.01 Fever R50.9 DVT prophylaxis Z29.9 (1) Asthma Asthma complication type: unspecified Asthma persistence: unspecified Asthma severity: unspecified severity Qualified Code(s): J45.909 - Unspecified asthma, uncomplicated
[2020-08-08 06:29] LABS: Basophils # (auto) 0.01 K/uL (0-0.2); Basophils % (auto) 0.1 %; Hematocrit (blood only) 42.1 % (37-47); Hemoglobin 13.8 g/dL (12.0-16.0); Immature Granulocytes # (auto) 0.23 K/uL (0.00-0.02); Immature Granulocytes % (auto) 1.6 %; Lymphocytes # (auto) 1.35 K/uL (1.2-3.4); Lymphocytes % (auto) 9.4 %; Mean Corpuscular Hemoglobin 27.4 pg (25-34); Mean Corpuscular Hgb Conc 32.8 g/dL (32-36); Mean Corpuscular Volume 83.7 fL (80-100); Mean Platelet Volume 10.2 fL (7.4-10.4); Monocytes # (auto) 1.27 K/uL (0.11-0.59); Monocytes % (auto) 8.8 %; Neutrophils # (auto) 11.55 K/uL (1.4-6.5); Neutrophils % (auto) 80.1 %; Platelet Count 403 K/uL (130-400); RDW Coefficient of Variation 13.4 % (11.5-14.5); RDW Standard Deviation 40.9 fL (36.4-46.3); Red Blood Count 5.03 M/uL (4.2-5.4); White Blood Count 14.41 K/uL (4.8-10.8)
[2020-08-08 07:04] LABS: Albumin Level 2.3 gm/dl (3.4-5.0); BUN Creatinine Ratio 14.2 (10-20); C Reactive Protein 4.24 mg/dl (0-0.29); Creatinine Clr Calc Pharmacy 143.1 ml/min; Est GFR (African American) 111.9; Est GFR (Non-African American) 96.6; Potassium 4.4 mmol/L (3.5-5.1)
[2020-08-08 07:09] LABS: Albumin Globulin Ratio 0.4 (0.9-2); Bilirubin,Total 0.6 mg/dl (0.2-1); Globulin 5.7 gm/dl (2.5-4.0)
[2020-08-08 07:39] LABS: D Dimer 2410 ug/L FEU (0-500)
[2020-08-08] MEDS: ALBUTEROL HFA 8 GM INHALER INH SCH ×3 (07:51→19:19)
[2020-08-08] MEDS: IPRATROPIUM BROMIDE HFA INHALER INH SCH ×3 (07:52→19:19)
--- NOTE | 2020-08-08 08:29 | Pharmacy Report ---
Pharmacy Anticoagulant Consult - Date of Service August 08, 2020 - Pharmacy Dosing Scope Pharmacy is consulted to review the use of enoxaparin in a special risk patient population possibly prone to accumulate drug: obesity and SARS-COV-2 positive with elevated D-dimer & to initiate/continue/recommend change in the setting of ordered THERAPEUTIC enoxaparin sub-q dosing therapy, order appropriate labs and adjust drug/dose/frequency. - Subjective The patient is a 25 year old F admitted on 08/05/20 13:46 for COVID +, ACUTE RESP FAILURE HYPOXIA. Patient is to receive or is currently on day # [] of PROPHYLACTIC or THERAPEUTIC [anticoagulant] [route] for [indication.] Pertinent PMH: - Recent Anticoagulant Meds Enoxaparin 150mg (1mg/kg) SQ Q12hrs - Assessment & Plan Enoxaparin for 25 year old F with COVID +, ACUTE RESP FAILURE HYPOXIA. Patient is to receive THERAPEUTIC enoxaparin sub-q for COVID-19 positive status and elevated d-dimer. - Assessment & Plan Regarding THERAPEUTIC Enoxaparin: Pt has been receiving enoxaparin 150 mg sub-q every 12 hours based on review of the following special population risk factors for drug accumulation: obese Covid positive patient with elevated d-dimer. Discussed with hospitalist and Dr. Bradley. AntiXa level elevated at 1.4 IU/mL) last evening (after the 5th dose). Per recs from Dr Bradley, will change to 150mg (1mg/kg) SQ Q24hrs to prevent excessive enoxaparin accumulation. We will continue to monitor this patient and make adjustments as needed. Thank you.
[2020-08-08] MEDS: ZINC SULFATE 220 MG CAPSULE PO SCH (08:38)
[2020-08-08] MEDS: DEXAMETHASONE SOD PHOSPHATE 6 MG in SYRINGE 0 ML IV SCH ×2 (08:38→20:21)
--- NOTE | 2020-08-08 17:28 | Hospitalist Progress Note ---
Date of Service August 08, 2020 Assessment & Plan (1) Pulmonary emboli: Presented after having Covid-19 for approximately 2 weeks with worsening shortness of breath, fever and was found to have bilateral pulmonary emboli with developing pulmonary infarcts She remains hemodynamically stable Echocardiogram cannot be performed in this facility on a Covid patient unless deemed of very urgent nature. Recommend echocardiogram as an outpatient in 1 to 2 weeks Due to her morbid obesity, anticoagulation clinic was consulted for management Decision was made to proceed with full dose therapeutic Lovenox 150 mg SQ every 12 hours An Anti-Xa level was checked 4 hours after the fifth dose to ensure therapeutic dosing-this level was elevated at 1.24 Appreciate pharmacist consultation-plan to reduce Lovenox dosing to Lovenox 150 mg SQ daily at 1900 Plan to continue Lovenox for approximately 2 weeks until she is able to start on Coumadin and attend the anticoagulation clinic regularly (when she is no longer considered contagious with her Covid and can come out of quarantine) Patient is in agreement with this plan Recommend anticoagulation for 6 months Of note, she reports her mother has a history of multiple blood clots Recommend hypercoagulable work-up given this family history despite the fact that she has Covid-19 and morbid obesity which certainly could have provoked her PEs. -Ordered all hypercoagulable work-up except could not order Antithrombin III and lupus PTT screen as she is on anticoagulant with enoxaparin-the study should be performed after she comes off of anticoagulation -Follow [id number] today again down to 2410 (2) COVID-19: Patient has had symptoms since July 22 and was diagnosed July 28 -She is out of the window for receiving remdesivir -She did receive 1 unit of convalescent plasma -Continue dexamethasone 6 mg IV twice daily given large body habitus and wheezing with asthma on examination Pulmonary has recommended Bipap at night to help air trapping-patient declined this -Markers of inflammation are significantly elevated with ESR continuing to be greater than 90, CRP 16 and is now down to 4, D-dimer in the 4000s at the peak and now trending downward, ferritin elevated at 463, LDH elevated at 513 AST and ALT are also minimally elevated Blood cultures remain no growth, procalcitonin remains negative -Continue to follow CBC, CMP, D-dimer, LDH, ferritin, CRP, ESR -Also continues on zinc sulfate (3) Acute respiratory failure with hypoxia: Secondary to pulmonary emboli with pulmonary infarcts and wheezing with asthma-improving today-wean down to 1 L nasal cannula Continue supplemental O2 to keep pulse ox greater than 92% Continue albuterol and ipratropium HFA's 2 puffs every 6 hours -We will do a 6-minute walk test prior to discharge to see if she qualifies for home oxygen (4) Asthma: Continue bronchodilators and IV steroids as above With some wheezing here on admission which is now resolved (5) Morbid obesity: BMI significantly elevated at 58.9 Needs weight loss counseling and encouragement-discussed this at length on 08/08. Gave her the name of Dr. Lissy Browne who is certified in obesity medicine for referral after discharge (6) Fever: Fevers could be from Covid-19, but more likely from acute PEs with pulmonary infarct-now afebrile for over 24 hours Procalcitonin is negative x3 Continue Tylenol as needed for fever Blood cultures no growth to date No antibiotics needed (7) DVT prophylaxis: Therapeutic dosing of Lovenox SQ Disposition-continued stay on telemetry Possibly discharge to home the next 1 to 2 days-May need home O2 Admission and Anticipated Discharge Date Admission Date: August 05, 2020 Subjective Patient reports feeling a bit better today. Still with a dry cough. No chest pain or shortness of breath. Remains on oxygen 1-2 L nasal cannula. She is out of bed to chair. Tolerating p.o. and no diarrhea. She reports this whole experience is motivating her to want to lose weight when she gets out of the hospital. No difficulty with bleeding. Review of Systems Review of Systems: All systems reviewed & are unremarkable except as noted in HPI & below Physical Exam Constitutional: WD/WN, vitals as above + morbidly obese Eyes: + anicteric sclerae Neck: trachea midline, no thyromegaly Respiratory: normal respiratory effort and + cough Auscultation: + diminished lung sounds (At the bases); no crackles Cardiovascular: RRR, no murmur, no edema Extremities: no calf tenderness and no pedal edema Chest (Breasts): Chest: normal inspection of chest Gastrointestinal (Abdomen): normal bowel sounds, soft, nontender, no hepatosplenomegaly Musculoskeletal: Extremities: extremities normal to inspection; no cyanosis and no clubbing Skin: no rashes, warm and dry Neurologic: moves all extremities and awake; no focal motor deficits Psychiatric: A+Ox3, euthymic affect Lymphatic: no lymphedema Results & Data Results & Data ([facility]) Vital Signs (Past 12 Hours) Vital Signs Temp Pulse Pulse Resp BP BP Pulse Ox 08/08/20 16:18 37 C 73 18 141/90 H 96 08/08/20 12:03 85 18 93 08/08/20 11:58 36.5 C 81 19 137/90 93 08/08/20 08:37 36.8 C 86 18 127/89 92 08/08/20 08:00 71 08/08/20 07:53 78 18 95 Laboratory Results 08/08/20 08/08/20 08/08/20 Range/Units 05:52 05:42 05:42 WBC 14.41 H (4.8-10.8) K/uL RBC 5.03 (4.2-5.4) M/uL Hgb 13.8 (12.0-16.0) g/dL Hct 42.1 (37-47) % MCV 83.7 (80-100) fL MCH 27.4 (25-34) pg MCHC 32.8 (32-36) g/dL RDW Std Deviation 40.9 (36.4-46.3) fL RDW Coeff of Altagracia 13.4 (11.5-14.5) % Plt Count 403 H (130-400) K/uL MPV 10.2 (7.4-10.4) fL Immature Gran % (Auto) 1.6 % Neut % (Auto) 80.1 % Lymph % (Auto) 9.4 % Slope % (Auto) 8.8 % Eos % (Auto) 0.0 % Baso % (Auto) 0.1 % Neut # (Auto) 11.55 H (1.4-6.5) K/uL Lymph # (Auto) 1.35 (1.2-3.4) K/uL Slope # (Auto) 1.27 H (0.11-0.59) K/uL Eos # (Auto) 0.00 (0-0.5) K/uL Baso # (Auto) 0.01 (0-0.2) K/uL Immature Gran # (Auto) 0.23 H (0.00-0.02) K/uL ESR (0-21) mm/hr D-Dimer (0-500) ug/L FEU Heparin Anti-Xa, LM Wt (< 0.10) IU/ML Sodium (136-145) mmol/L Potassium (3.5-5.1) mmol/L Chloride (98-107) mmol/L Carbon Dioxide (21-32) mmol/L Anion Gap (3-11) BUN (7-18) mg/dl Creatinine (0.6-1.2) mg/dl Est Cr Clr Drug Dosing ml/min Est GFR ( Amer) Est GFR (Non-Af Amer) BUN/Creatinine Ratio (10-20) Glucose (70-99) mg/dl Calcium (8.5-10.1) mg/dl Ferritin (8-388) ng/ml Total Bilirubin (0.2-1) mg/dl AST (15-37) U/L ALT (12-78) U/L Alkaline Phosphatase (45-117) U/L Lactate Dehydrogenase 513 H (84-246) U/L C-Reactive Protein (0-0.29) mg/dl Total Protein (6.4-8.2) gm/dl Albumin (3.4-5.0) gm/dl Globulin (2.5-4.0) gm/dl Albumin/Globulin Ratio (0.9-2) Procalcitonin 0.13 (0-0.5) ng/ml 08/08/20 08/08/20 08/08/20 Range/Units 05:42 05:42 05:42 WBC (4.8-10.8) K/uL RBC (4.2-5.4) M/uL Hgb (12.0-16.0) g/dL Hct (37-47) % MCV (80-100) fL MCH (25-34) pg MCHC (32-36) g/dL RDW Std Deviation (36.4-46.3) fL RDW Coeff of Altagracia (11.5-14.5) % Plt Count (130-400) K/uL MPV (7.4-10.4) fL Immature Gran % (Auto) % Neut % (Auto) % Lymph % (Auto) % Slope % (Auto) % Eos % (Auto) % Baso % (Auto) % Neut # (Auto) (1.4-6.5) K/uL Lymph # (Auto) (1.2-3.4) K/uL Slope # (Auto) (0.11-0.59) K/uL Eos # (Auto) (0-0.5) K/uL Baso # (Auto) (0-0.2) K/uL Immature Gran # (Auto) (0.00-0.02) K/uL ESR > 90 H (0-21) mm/hr D-Dimer 2410 H* (0-500) ug/L FEU Heparin Anti-Xa, LM Wt (< 0.10) IU/ML Sodium 136 (136-145) mmol/L Potassium 4.4 (3.5-5.1) mmol/L Chloride 105 (98-107) mmol/L Carbon Dioxide 27 (21-32) mmol/L Anion Gap 5.0 (3-11) BUN 12 (7-18) mg/dl Creatinine 0.85 (0.6-1.2) mg/dl Est Cr Clr Drug Dosing 143.1 ml/min Est GFR ( Amer) 111.9 Est GFR (Non-Af Amer) 96.6 BUN/Creatinine Ratio 14.2 (10-20) Glucose 149 H (70-99) mg/dl Calcium 9.0 (8.5-10.1) mg/dl Ferritin 463.0 H (8-388) ng/ml Total Bilirubin 0.6 (0.2-1) mg/dl AST 82 H (15-37) U/L ALT 110 H (12-78) U/L Alkaline Phosphatase 89 (45-117) U/L Lactate Dehydrogenase (84-246) U/L C-Reactive Protein 4.24 H (0-0.29) mg/dl Total Protein 8.0 (6.4-8.2) gm/dl Albumin 2.3 L (3.4-5.0) gm/dl Globulin 5.7 H (2.5-4.0) gm/dl Albumin/Globulin Ratio 0.4 L (0.9-2) Procalcitonin (0-0.5) ng/ml 08/07/20 Range/Units 23:05 WBC (4.8-10.8) K/uL RBC (4.2-5.4) M/uL Hgb (12.0-16.0) g/dL Hct (37-47) % MCV (80-100) fL MCH (25-34) pg MCHC (32-36) g/dL RDW Std Deviation (36.4-46.3) fL RDW Coeff of Altagracia (11.5-14.5) % Plt Count (130-400) K/uL MPV (7.4-10.4) fL Immature Gran % (Auto) % Neut % (Auto) % Lymph % (Auto) % Slope % (Auto) % Eos % (Auto) % Baso % (Auto) % Neut # (Auto) (1.4-6.5) K/uL Lymph # (Auto) (1.2-3.4) K/uL Slope # (Auto) (0.11-0.59) K/uL Eos # (Auto) (0-0.5) K/uL Baso # (Auto) (0-0.2) K/uL Immature Gran # (Auto) (0.00-0.02) K/uL ESR (0-21) mm/hr D-Dimer (0-500) ug/L FEU Heparin Anti-Xa, LM Wt 1.24 (< 0.10) IU/ML Sodium (136-145) mmol/L Potassium (3.5-5.1) mmol/L Chloride (98-107) mmol/L Carbon Dioxide (21-32) mmol/L Anion Gap (3-11) BUN (7-18) mg/dl Creatinine (0.6-1.2) mg/dl Est Cr Clr Drug Dosing ml/min Est GFR ( Amer) Est GFR (Non-Af Amer) BUN/Creatinine Ratio (10-20) Glucose (70-99) mg/dl Calcium (8.5-10.1) mg/dl Ferritin (8-388) ng/ml Total Bilirubin (0.2-1) mg/dl AST (15-37) U/L ALT (12-78) U/L Alkaline Phosphatase (45-117) U/L Lactate Dehydrogenase (84-246) U/L C-Reactive Protein (0-0.29) mg/dl Total Protein (6.4-8.2) gm/dl Albumin (3.4-5.0) gm/dl Globulin (2.5-4.0) gm/dl Albumin/Globulin Ratio (0.9-2) Procalcitonin (0-0.5) ng/ml PG Care Time/CCT Total # of Minutes Spent Total Time Spent with Patient: Total time spent is greater than 50% in coordination of care (as documented) at patient's floor/unit and/or counseling patient: Coding Level of Care Code 83966 Subseq Hosp Care Lvl 3 Diagnoses Pulmonary emboli I26.99 COVID-19 U07.1 Acute respiratory failure with hypoxia J96.01 Asthma J45.909 Asthma complication type: unspecified Asthma persistence: unspecified Asthma severity: unspecified severity Morbid obesity E66.01 Fever R50.9 DVT prophylaxis Z29.9 (1) Asthma Asthma complication type: unspecified Asthma persistence: unspecified Asthma severity: unspecified severity Qualified Code(s): J45.909 - Unspecified asthma, uncomplicated
[2020-08-08] MEDS ORDERED: ENOXAPARIN 150 MG/ML SYR SQ SCH (19:00)
[2020-08-09] MEDS: ALBUTEROL HFA 8 GM INHALER INH SCH ×2 (00:23→07:33)
[2020-08-09] MEDS: IPRATROPIUM BROMIDE HFA INHALER INH SCH ×2 (00:23→07:33)
[2020-08-09 05:50] LABS: Basophils # (auto) 0.01 K/uL (0-0.2); Basophils % (auto) 0.1 %; Hematocrit (blood only) 42.6 % (37-47); Hemoglobin 14.4 g/dL (12.0-16.0); Immature Granulocytes # (auto) 0.17 K/uL (0.00-0.02); Immature Granulocytes % (auto) 1.2 %; Lymphocytes # (auto) 1.45 K/uL (1.2-3.4); Lymphocytes % (auto) 9.9 %; Mean Corpuscular Hemoglobin 28.3 pg (25-34); Mean Corpuscular Hgb Conc 33.8 g/dL (32-36); Mean Corpuscular Volume 83.7 fL (80-100); Mean Platelet Volume 9.9 fL (7.4-10.4); Monocytes # (auto) 1.22 K/uL (0.11-0.59); Monocytes % (auto) 8.3 %; Neutrophils # (auto) 11.81 K/uL (1.4-6.5); Neutrophils % (auto) 80.5 %; Platelet Count 378 K/uL (130-400); RDW Standard Deviation 39.8 fL (36.4-46.3); Red Blood Count 5.09 M/uL (4.2-5.4); White Blood Count 14.66 K/uL (4.8-10.8)
[2020-08-09 06:19] LABS: Albumin Level 2.4 gm/dl (3.4-5.0); BUN Creatinine Ratio 16.6 (10-20); Est GFR (African American) 120.4; Est GFR (Non-African American) 103.9; Potassium 4.6 mmol/L (3.5-5.1)
[2020-08-09 06:21] LABS: D Dimer 1820 ug/L FEU (0-500)
[2020-08-09 06:24] LABS: Albumin Globulin Ratio 0.4 (0.9-2); Bilirubin,Total 0.5 mg/dl (0.2-1); C Reactive Protein 1.88 mg/dl (0-0.29); Ferritin 468.5 ng/ml (8-388); Globulin 5.7 gm/dl (2.5-4.0); Total Protein 8.1 gm/dl (6.4-8.2)
[2020-08-09] MEDS: DEXAMETHASONE SOD PHOSPHATE 6 MG in SYRINGE 0 ML IV SCH (08:49)
[2020-08-09] MEDS: ZINC SULFATE 220 MG CAPSULE PO SCH (08:49)
[2020-08-09] MEDS ORDERED: ALBUTEROL HFA 8 GM INHALER INH PRN (10:28)
[2020-08-09] MEDS ORDERED: IPRATROPIUM BROMIDE HFA INHALER INH PRN (10:28)
--- NOTE | 2020-08-09 14:42 | Discharge Summary ---
Date of Service August 09, 2020 Admission HPI Per Admitting Provider 25 yo obese asthmatic patient notes that all of her symptoms started around 22 July. She had a cough and a fever. This dissipated for short time and now has reoccurred. She tested positive 07/28/20 for coronavirus. She admits last night she has had left-sided chest pain which is constant. Is worse on palpation. Her shortness of breath is significant worsened over the past 2 days. She is referred in by [facility] as a respiratory rate over there was in the 40s and her pulse ox was 90%. Patient notes any kind of exertion or talking she becomes significantly tachypneic. She recently stopped her steroids as they ran out. Denies any belly pain nausea vomiting or diarrhea. She did lose her sense of taste and smell. markedly elevated d dimer non specific cxr changes due to poor technique secondary to body habitus Principal Diagnosis Pulmonary emboli, pulmonary infarct, acute respiratory failure with hypoxia, COVID-19 Discharge Exam Constitutional WD/WN, vitals as above + morbidly obese Eyes + anicteric sclerae Neck trachea midline, no thyromegaly Respiratory normal respiratory effort and + cough Auscultation: + diminished lung sounds (At the bases); no crackles Cardiovascular RRR, no murmur, no edema Extremities: no calf tenderness and no pedal edema Chest (Breasts) Chest: normal inspection of chest Gastrointestinal (Abdomen) normal bowel sounds, soft, nontender, no hepatosplenomegaly Musculoskeletal Extremities: extremities normal to inspection; no cyanosis and no clubbing Skin no rashes, warm and dry Neurologic moves all extremities and awake; no focal motor deficits Psychiatric A+Ox3, euthymic affect Lymphatic no lymphedema Discharge Data Allergies Allergy/AdvReac Type Severity Reaction Status Date / Time No Known Allergies Allergy Unverified 08/05/20 13:17 Consultations 08/05/20 12:52 ED Decision to Admit Stat 08/09/20 14:27 Consult JOSEG compliance tester Routine Ordered Studies 08/05/20 15:07 CT angio chest PE protocol Stat CXR Hospital Course (1) Pulmonary emboli: Presented after having Covid-19 for approximately 2 weeks with worsening shortness of breath, fever and was found to have bilateral pulmonary emboli with developing pulmonary infarcts She remains hemodynamically stable Echocardiogram cannot be performed in this facility on a Covid patient unless deemed of very urgent nature. Recommend echocardiogram as an outpatient in 1 to 2 weeks Due to her morbid obesity, anticoagulation clinic was consulted for management Decision was made to proceed with full dose therapeutic Lovenox 150 mg SQ every 12 hours An Anti-Xa level was checked 4 hours after the fifth dose to ensure therapeutic dosing-this level was elevated at 1.24 Appreciate pharmacist consultation-plan to reduce Lovenox dosing to Lovenox 150 mg SQ daily at 1900 Plan to continue Lovenox for approximately 1-2 weeks until she is able to start on Coumadin and attend the anticoagulation clinic regularly (when she is no longer considered contagious with her Covid and can come out of quarantine) Patient is in agreement with this plan Recommend anticoagulation for 6 months Of note, she reports her mother has a history of multiple blood clots Recommend hypercoagulable work-up given this family history despite the fact that she has Covid-19 and morbid obesity which certainly could have provoked her PEs. -Ordered all hypercoagulable work-up except could not order Antithrombin III and lupus PTT screen as she is on anticoagulant with enoxaparin-the study should be performed after she comes off of anticoagulation -D dimer was in the 4000s and now continues to trend downward (2) COVID-19: Patient has had symptoms since July 22 and was diagnosed July 28 -She is out of the window for receiving remdesivir -She did receive 1 unit of convalescent plasma -received dexamethasone 6 mg IV twice daily given large body habitus and wheezing with asthma on examination-finish out 5 more days of po decadron at home Pulmonary has recommended Bipap at night to help air trapping-patient declined this -Markers of inflammation are significantly elevated with ESR continuing to be greater than 90 and now down to 76, CRP 16 and is now down to 1, D-dimer in the 4000s at the peak and now trending downward, ferritin elevated at 463, LDH elevated at 513 AST and ALT are also minimally elevated Blood cultures remain no growth, procalcitonin remains negative stable for dc to home (3) Acute respiratory failure with hypoxia: Secondary to pulmonary emboli with pulmonary infarcts and wheezing with asthma-improving today-wean down to 1 L nasal cannula Continue supplemental O2 to keep pulse ox greater than 92% Continue albuterol HFA 2 puffs every 6 hours -SHe passed a 6-minute walk test prior to discharge and does not qualify for home oxygen (4) Asthma: Continue bronchodilators and steroids as above With some wheezing here on admission which is now resolved (5) Morbid obesity: BMI significantly elevated at 58.9 Needs weight loss counseling and encouragement-discussed this at length on 08/08. Gave her the name of Dr. Lissy Browne who is certified in obesity medicine for referral after discharge (6) Fever: Fevers could be from Covid-19, but more likely from acute PEs with pulmonary infarct-now afebrile for over 48 hours Procalcitonin is negative x3 Continue Tylenol as needed for fever Blood cultures no growth to date No antibiotics needed (7) DVT prophylaxis: Therapeutic dosing of Lovenox SQ Disposition-dc to home Total Time Total Time Spent Total Time Spent (In Minutes): 40 min Total Time Includes: Examination of the Patient, Discharge Planning and Medication Reconciliation Discharge Plan Discharge Items Patient Disposition: Home - Self-Care Reason For Visit: COVID +, ACUTE RESP FAILURE HYPOXIA Discharge Diagnosis: COVID-19, Pulmonary emboli with pulmonary infarct, acute respiratory failure with hypoxia Condition on Discharge: Fair Activity: As commented below Bathing: No limitations Exercise/Sports: Gradually increase as tolerated Weightbearing: Full weightbearing Non-emergency contact: Primary Care Provider Call non-emergency contact if: you have any medication questions, your symptoms worsen, your pain is not controlled and you have a fever Follow-up/Referrals: Mary Bradley MD, PhD [Pathologist] - (Please follow up with Dr. Bradley at the anticoagulation clinic in 1-2 weeks. This will be scheduled for you. If you don't hear back from our nurse with your appointment date and time, please call to schedule. ) [facility] [Primary Care Provider] - (Follow up within 1-2 weeks. This may be a virtual visit.) Diet: Regular Addtl Attending Provider Instructions: You were diagnosed with blood clots in your lungs called pulmonary emboli. Please continue on Lovenox 150mg SQ once daily at 7:00 PM every day. You will need to follow up with the anticoagulation clinic in 1 week to get started on Coumadin as your blood thinner pill. You will end up staying on this blood thinner pill for 6 months. Our Nurse Navigator, Michelle Larsen, should be contacting you with this appointment date and time for the anticoagulation clinic. Finish out the course of dexamethasone 6mg twice a day for 5 more days. Continue the albuterol inhaler as needed for cough or wheezing. Pending Studies at Discharge: Yes (Hypercoagulable workup labs) Stand-Alone Forms: My [facility], Work/School Release (Inpt) Medications and DC Order Prescriptions: New enoxaparin [Lovenox] 150 mg/mL Syringe 150 mg subcut DAILY@1900 Qty: 10 RF: 1 dexamethasone 4 mg tablet 6 mg PO BID 5 Days Qty: 15 RF: 0 Continued albuterol sulfate [Ventolin HFA] 90 mcg/actuation Hfa Aerosol Inhaler 2 puff INHALATION Q4H PRN (Reason: Shortness Of Breath) Qty: 18 RF: 0 Discontinued Vicks DayQuil 60-20-650 mg/30 mL Solution 30 ml PO Q6H PRN (Reason: Cold Symptoms) RF: 0 Discharge Orders: Discharge Order (Routine); Ordered 08/09/20 Ordered By: Zulma Gamboa Admission Data Admit Date/Time: 08/05/20 13:46 Attending Provider: Zulma Gamboa Admit Provider: Alvin Carmona Primary Care Provider: [facility] Other Providers: Alvin Carmona Coding Level of Care Code D/C Day Management >30 mins Diagnoses Pulmonary emboli I26.99 COVID-19 U07.1 Acute respiratory failure with hypoxia J96.01 Asthma J45.909 Asthma complication type: unspecified Asthma persistence: unspecified Asthma severity: unspecified severity Morbid obesity E66.01 Fever R50.9 DVT prophylaxis Z29.9
[2020-08-12 21:31] LABS: Anti Cardiolipin Ab IgG <14 GPL; Anti Cardiolipin Ab IgM 14 MPL; B2 Glycoprotein IgG <9 SGU (<=20); B2 Glycoprotein IgM <9 SMU (<=20); Protein S Functional(Activity) 49 % (60-140)
== END 2020-08-09 18:47 | disposition home or self-care (01) | DRG 177 ==
LOC: ED 10:23 → SUATTDRO 13:46 → 2S 13:46